=== PATIENT | female | born 1990 | race Two or more races ===

== ENCOUNTER 2025-01-05 10:48 | Outpatient (CLI) | payer OTHER ==
[2025-01-05 12:02] LABS: Hepatitis B Surface Antigen Negative (Negative)
== END 2025-01-05 17:00 | disposition home or self-care (01) ==
LOC: LAB 10:48
PROVIDERS: ATTEND Preventive Medicine Preventive Medicine/Occupational Environmental Medicine
DX: Z77.21 Contact with and (suspected) exposure to potentially hazardous body fluids (principal)
CPT/HCPCS: 36415; 86703; 86706; 86803; 87340